=== PATIENT | male | born 1950 | race Caucasian/White ===

== ENCOUNTER 2022-02-19 09:05 | Day surgery (SDC) | payer MEDICARE, SELFPAY ==
[2022-02-08 09:53] VITALS: BMI 26.3
--- NOTE | 2022-02-13 12:56 | HO.ANESPROP2 ---
Documented by User: Lynda Ortiz NP 02/13/22 12:56 HPI - Anesthesia Eval Consult details Narrative: 71yo M for Right Cataract Extraction IOL Insertion PCP cleared No previous cataract on record Eliquis for afib [facility] Past Medical History Medical History Atrial fibrillation Cataract of both eyes History of snoring Surgical History Surgical History Hx of colonoscopy Hx of wisdom tooth extraction Social History Social History Are you a primary care management assistant to a significant other at home: No Do you presently have visiting nurse or other home services: No Patient Tobacco Use Status: Current someday Tobacco user Tobacco use type: Cigar Use of substances other than those prescribed or required for medical reasons: No Have you been hit, kicked, punched, or otherwise hurt by someone within the past year? If so, by whom?: No Are you DNR?: No Advance Directives: No Advance Directives Information Provided: Yes Advance Directives on File: No Recently lost weight without trying: No Nutrition Risks: No Nutritional Risk Poor oral hygiene: No Meds Allergies Allergy/AdvReac Type Severity Reaction Status Date / Time No Known Allergies Allergy Verified 02/13/22 12:52 Home Medications Medication Instructions Recorded Confirmed Last Taken Type apixaban 5 mg tablet (Eliquis) 1 tab PO BID 02/08/22 02/08/22 Unknown History metoprolol tartrate 25 mg tablet 1 tab PO BID 02/08/22 02/08/22 Unknown History Exam Exam Date and Time: February 13, 2022 1256 Height,Weight and Vital Signs: Height 5 ft 7 in Weight 76.204 kg Assessment and Plan Assessment Anesthesia Assessment: Chart Reviewed Documented by User: Matthew Brice MD 02/19/22 13:53 [facility] Past Medical History Medical History Atrial fibrillation Cataract of both eyes History of snoring Family History Family history of problems with anesthesia: No Surgical History Surgical History Hx of colonoscopy Hx of wisdom tooth extraction History of Problems with Anesthesia: No Social History Social History Are you a primary care management assistant to a significant other at home: No Do you presently have visiting nurse or other home services: No Patient Tobacco Use Status: Current someday Tobacco user Tobacco use type: Cigar Use of substances other than those prescribed or required for medical reasons: No Have you been hit, kicked, punched, or otherwise hurt by someone within the past year? If so, by whom?: No Are you DNR?: No Advance Directives: No Advance Directives Information Provided: Yes Advance Directives on File: No Recently lost weight without trying: No Nutrition Risks: No Nutritional Risk Poor oral hygiene: No Meds Allergies Allergy/AdvReac Type Severity Reaction Status Date / Time No Known Allergies Allergy Verified 02/13/22 12:52 Home Medications Medication Instructions Recorded Confirmed Last Taken Type apixaban 5 mg tablet (Eliquis) 1 tab PO BID 02/08/22 02/08/22 Unknown History metoprolol tartrate 25 mg tablet 1 tab PO BID 02/08/22 02/08/22 Unknown History Exam Airway Mallampati Class: II TM Dist: >3cm Neck ROM: Full Loose/Missing/Broken Teeth: Yes (big gap possible missing tooth bottom front, poor dentition globally) Heart: irreg irreg s1s2 Lungs: cta b/l Assessment and Plan Assessment Anesthesia Assessment: Anesthesia Plan Discussed Final Anesthetic Review Family History of Problems with Anesthesia: No History of Problems with Anesthesia: No NPO: Yes ASA Class: III Final Preanesthetic Review: No Changes in Pt Med Stat, Meds/Allgs Chart Reviewed, Consent Obtained/Reviewed and Anes Risks/Benef Reviewed Patient Risk: Intermediate Procedure Risk: Intermediate Assessment/Block/Sedation in SS: Assess/Block/Sedation-SS Anesthetic Plan Anesthetic Plan: MAC: and Agree w/ Assess. and Plan Disposition: Standard PACU
--- NOTE | 2022-02-14 09:13 | MHC.SHP ---
Pre-Procedural Eval Section A Date of Service: 02/14/22 The patient is an INPATIENT: No Changes since office visit: No Cold of Flu in the past 2 weeks, No New Medical Problems, No Changes in Medication and No Patient answered all questions The History & Physical has been completed within 30 days and I have reviewed it.: Yes Section B Chief Complaint: Age-related nuclear cataract, right eye Allergies: Allergies Allergy/AdvReac Type Severity Reaction Status Date / Time No Known Allergies Allergy Verified 02/13/22 12:52 Plan Diagnosis/Plan: Unchanged I have reviewed the history and physical and performed a pertinent physical examination on my patient. No changes have occurred unless specified.
[2022-02-19 13:15] VITALS: BP 142/91; PULSE 80; RESP 18; TEMP 36.1; O2SAT 96
[2022-02-19] MEDS: Cyclopentolate 1 % Ophth Sol 2 ML DRPBTL 1 DROP EYE-RIGHT ×3 (13:15→13:21)
[2022-02-19] MEDS: Phenylephrine HCL 2.5% Oph SoL 2 ML BOTTLE 1 DROP EYE-RIGHT ×3 (13:15→13:21)
[2022-02-19] MEDS: Tropicamide 1 % Ophth Sol 3 ML BTL 1 DROP EYE-RIGHT ×3 (13:15→13:21)
[2022-02-19] MEDS: Tetracaine HCl/PF 0.5% Oph Sol 4 ML DROPS 1 DROP EYE-RIGHT (13:15)
[2022-02-19] MEDS: Ketorolac Tromethamine 0.5% Op 5 ML DROPS 1 DROP EYE-RIGHT ×3 (13:15→13:21)
[2022-02-19] MEDS: Lactated Ringers 500 ML 50 ML IV (13:18)
--- NOTE | 2022-02-19 14:33 | HO.PNOPHT ---
Ophthalmology Procedure Procedure Date of Service: 02/19/22 Ophthalmology Viscoelastic: Healon Duet Dual Pack Pro Ophthalmology Lenses: TECNIS [id number] (20.5) Procedure Notes: PREOPERATIVE DIAGNOSIS: Decreased visual acuity right eye secondary to cataract POSTOPERATIVE DIAGNOSIS: Same PROCEDURE: Right cataract extraction with intraocular lens insertion SURGEON: Noe Menchaca M.D. ANESTHESIA: Topical/MAC ESTIMATED BLOOD LOSS: None COMPLICATIONS: None After obtaining informed consent, the patient was brought to the operating room suite and placed in the supine position. After adequate sedation per anesthesia, topical drops of Tetracaine were given to the right eye. The eye was then prepped and draped in the usual sterile fashion. The operating room microscope was then positioned over the operative eye and a lid speculum placed. A paracentesis was created. Viscoelastic was then instilled into the anterior chamber. A three plane incision was then created temporally, utilizing a 2.85 mm keratome. Capsulotomy forceps were then utilized to create a circular tear capsulotomy. Hydrodissection and hydrodelineation were carried out until adequate mobilization of the nucleus occurred. Phacoemulsification was then utilized to remove the dense central nucleus followed by removal of the cortical material utilizing the automated aspiration irrigation unit. Viscoelastic was instilled into the posterior capsular bag followed by placement of a posterior chamber intraocular lens without difficulty. The residual Viscoelastic was then removed utilizing the automated IA machine. The wound was checked and found to be watertight. The patient tolerated the procedure well and the lid speculum was removed. Intracameral injection of Vigamox 0.1 mL followed by a subtenon injection of Kenalog-40 0.2 mL were administered. The patient will be seen in the a.m.
[2022-02-19 15:01] VITALS: BP 134/97; PULSE 75; RESP 16; TEMP 36.3; O2SAT 96
== END 2022-02-19 15:12 | disposition home or self-care (01) ==
PROVIDERS: PCP Pediatrics; Visit Provider Ophthalmology
PROC: (CPT 66985; principal; 2022-02-19 12:20)
DX: H25.11 Age-related nuclear cataract, right eye (principal); H52.4 Presbyopia; D31.32 Benign neoplasm of left choroid; H35.09 Other intraretinal microvascular abnormalities; I48.91 Unspecified atrial fibrillation; Z79.01 Long term (current) use of anticoagulants; Z79.899 Other long term (current) drug therapy; Z87.891 Personal history of nicotine dependence
CPT/HCPCS: 66984; J2250; J3300; J7999; V2632

== ENCOUNTER 2022-03-05 08:25 | Day surgery (SDC) | payer MEDICARE, SELFPAY ==
[2022-02-08 09:56] VITALS: BMI 26.3
--- NOTE | 2022-03-01 08:53 | MHC.SHP ---
Pre-Procedural Eval Section A Date of Service: 03/01/22 The patient is an INPATIENT: No Changes since office visit: No Cold of Flu in the past 2 weeks, No New Medical Problems, No Changes in Medication and No Patient answered all questions The History & Physical has been completed within 30 days and I have reviewed it.: Yes Section B Chief Complaint: Age-related nuclear cataract, left eye Allergies: Allergies Allergy/AdvReac Type Severity Reaction Status Date / Time No Known Allergies Allergy Verified 02/13/22 12:52 Plan Diagnosis/Plan: Unchanged I have reviewed the history and physical and performed a pertinent physical examination on my patient. No changes have occurred unless specified.
--- NOTE | 2022-03-02 08:43 | HO.ANESPROP2 ---
Documented by User: Lynda Ortiz NP 03/02/22 08:44 HPI - Anesthesia Eval Consult details Narrative: 71yo M for Left?Cataract Extraction IOL Insertion PCP cleared Right eye 02/19/22 with MAC: Midaz 1 [facility]quis [facility] Past Medical History Medical History Atrial fibrillation Cataract of both eyes History of snoring Family History Family history of problems with anesthesia: No Surgical History Surgical History Hx of colonoscopy Hx of wisdom tooth extraction History of Problems with Anesthesia: No Social History Social History Are you a primary urgent care physician to a significant other at home: No Do you presently have visiting nurse or other home services: No Patient Tobacco Use Status: Current someday Tobacco user Tobacco use type: Cigar Smoked in Last 30 Days: Yes Use of substances other than those prescribed or required for medical reasons: No Have you been hit, kicked, punched, or otherwise hurt by someone within the past year? If so, by whom?: No Are you DNR?: No Advance Directives: No Advance Directives Information Provided: Yes Advance Directives on File: No Recently lost weight without trying: No Nutrition Risks: No Nutritional Risk Poor oral hygiene: No Meds Allergies Allergy/AdvReac Type Severity Reaction Status Date / Time No Known Allergies Allergy Verified 02/13/22 12:52 Home Medications Medication Instructions Recorded Confirmed Last Taken Type apixaban 5 mg tablet (Eliquis) 1 tab PO BID 02/08/22 02/08/22 Unknown History metoprolol tartrate 25 mg tablet 1 tab PO BID 02/08/22 02/08/22 Unknown History Exam Exam Date and Time: March 02, 2022 0843 Height,Weight and Vital Signs: Height 5 ft 7 in Weight 76.204 kg Assessment and Plan Assessment Anesthesia Assessment: Chart Reviewed Final Anesthetic Review Family History of Problems with Anesthesia: No History of Problems with Anesthesia: No Documented by User: Sri Eastman MD 03/05/22 10:50 [facility] Past Medical History Medical History Atrial fibrillation Cataract of both eyes History of snoring Surgical History Surgical History Hx of colonoscopy Hx of wisdom tooth extraction Social History Social History Are you a primary urgent care physician to a significant other at home: No Do you presently have visiting nurse or other home services: No Patient Tobacco Use Status: Current someday Tobacco user Tobacco use type: Cigar Smoked in Last 30 Days: Yes Use of substances other than those prescribed or required for medical reasons: No Have you been hit, kicked, punched, or otherwise hurt by someone within the past year? If so, by whom?: No Are you DNR?: No Advance Directives: No Advance Directives Information Provided: Yes Advance Directives on File: No Recently lost weight without trying: No Nutrition Risks: No Nutritional Risk Poor oral hygiene: No Meds Allergies Allergy/AdvReac Type Severity Reaction Status Date / Time No Known Allergies Allergy Verified 02/13/22 12:52 Home Medications Medication Instructions Recorded Confirmed Last Taken Type apixaban 5 mg tablet (Eliquis) 1 tab PO BID 02/08/22 02/08/22 Unknown History metoprolol tartrate 25 mg tablet 1 tab PO BID 02/08/22 02/08/22 Unknown History Exam Airway Mallampati Class: II (Implants and caps , one top front rest lateral) TM Dist: >3cm Neck ROM: Full Heart: irreg Lungs: cta Assessment and Plan Assessment Anesthesia Assessment: Anesthesia Plan Discussed and Chart Reviewed Final Anesthetic Review NPO: Yes ASA Class: III Final Preanesthetic Review: No Changes in Pt Med Stat, Meds/Allgs Chart Reviewed and Consent Obtained/Reviewed Patient Risk: Intermediate Procedure Risk: Intermediate Anesthetic Plan Anesthetic Plan: MAC: Disposition: Standard PACU
[2022-03-05 10:51] VITALS: BP 130/91; PULSE 95; RESP 16; TEMP 36.1; O2SAT 94
[2022-03-05] MEDS: Tetracaine HCl/PF 0.5% Oph Sol 4 ML DROPS 1 DROP EYE-LEFT (10:57)
[2022-03-05] MEDS: Cyclopentolate 1 % Ophth Sol 2 ML DRPBTL 1 DROP EYE-LEFT ×3 (10:59→11:12)
[2022-03-05] MEDS: Tropicamide 1 % Ophth Sol 3 ML BTL 1 DROP EYE-LEFT ×3 (11:01→11:13)
[2022-03-05] MEDS: Ketorolac Tromethamine 0.5% Op 5 ML DROPS 1 DROP EYE-LEFT ×3 (11:03→11:15)
[2022-03-05] MEDS: Phenylephrine HCL 2.5% Oph SoL 2 ML BOTTLE 1 DROP EYE-LEFT ×3 (11:05→11:16)
[2022-03-05] MEDS: Lactated Ringers 500 ML 50 ML IV (11:08)
--- NOTE | 2022-03-05 12:10 | HO.PNOPHT ---
Ophthalmology Procedure Procedure Date of Service: 03/05/22 Ophthalmology Viscoelastic: Healon Duet Dual Pack Pro Ophthalmology Lenses: TECKETTY [id number] (20) Procedure Notes: PREOPERATIVE DIAGNOSIS: Decreased visual acuity left eye secondary to cataract POSTOPERATIVE DIAGNOSIS: Same PROCEDURE: Left cataract extraction with intraocular lens insertion SURGEON: Noe Menchaca M.D. ANESTHESIA: Topical/MAC ESTIMATED BLOOD LOSS: None COMPLICATIONS: None After obtaining informed consent, the patient was brought to the operation room suite and placed in the supine position. After adequate sedation per anesthesia, topical drops of Tetracaine were given to the left eye. The eye was then prepped and draped in the usual sterile fashion. The operating room microscope was then positioned over the operative eye and a lid speculum placed. A paracentesis was created. Viscoelastic was then instilled into the anterior chamber. A three plane incision was then created temporally, utilizing a 2.85 mm keratome. Capsulotomy forceps were then utilized to create a circular tear capsulotomy. Hydrodissection and hydrodelineation were carried out until adequate mobilization of the nucleus occurred. Phacoemulsification was then utilized to remove the dense central nucleus followed by removal of the cortical material utilizing the automated aspiration irrigation unit. Viscoat elastic was instilled into the posterior capsular bag followed by placement of a posterior chamber intraocular lens without difficulty. The residual Viscoat elastic was then removed utilizing the automated IA machine. The wound was check and found to be watertight. The patient tolerated the procedure well and the lid speculum was removed. Intracameral injection of Vigamox 0.1 mL followed by a subtenon injection of Kenalog-40 0.2 mL were administered. The patient will be seen in the a.m.
[2022-03-05 12:29] VITALS: BP 125/80; PULSE 85; RESP 12; TEMP 36.5; O2SAT 98
== END 2022-03-05 12:41 | disposition home or self-care (01) ==
PROVIDERS: PCP Pediatrics; Visit Provider Ophthalmology
PROC: (CPT 66985; principal; 2022-03-05 11:50)
DX: H25.12 Age-related nuclear cataract, left eye (principal); I48.91 Unspecified atrial fibrillation; Z79.01 Long term (current) use of anticoagulants
CPT/HCPCS: 66984; J2250; J3010; J3301; V2632